=== PATIENT | female | born 1980 | race Two or more races ===

== ENCOUNTER 2021-01-12 18:02 | Emergency (ER) | payer SELFPAY ==
[~2021-01-12] VITALS: Ht 172.7 cm; Wt 102.1 kg
[2021-01-12 18:11] VITALS: BP 128/74
== END 2021-01-12 23:17 | disposition left against medical advice (07) ==
LOC: ER 18:02
DX: R10.31 Right lower quadrant pain (principal); R10.32 Left lower quadrant pain; Z53.21 Procedure and treatment not carried out due to patient leaving prior to being seen by health care provider